=== PATIENT | female | born 1960 | race Two or more races ===

== ENCOUNTER → 2020-04-28 | Outpatient (CLI) | payer OTHER ==
[2020-04-28 07:54] LABS: Basophils # (auto) 0.1 10 ^3/uL (0-0.2); Eosinophils # (auto) 0.4 10 ^3/uL (0-0.8); Monocytes # (auto) 0.6 10 ^3/uL (0-1.3)
[2020-04-28 07:56] LABS: Basophils % (auto) 0.7 % (0.0-2.0); Hematocrit 19.6 % (36.0-46.0); Lymphocytes # (auto) 1.5 10 ^3/uL (0.4-5.4); Lymphocytes % (auto) 15.8 % (10.0-50.0); Mean Corpuscular Hemoglobin 16.3 pg (28.0-32.0); Mean Corpuscular Hgb Conc. 27.3 g/dL (32.0-36.0); Mean Corpuscular Volume 59.5 fL (80.0-100.0); Monocytes % (auto) 6.9 % (0.0-12.0); Neutrophils # (auto) 6.8 10 ^3/uL (1.6-8.6); Neutrophils % (auto) 72.6 % (37.0-80.0); Nucleated Red Blood Cells % 0.3 %; Platelet Count (auto) 364 10^3/uL (140-450); Red Blood Cells 3.29 10^6/uL (4.0-5.20); White Blood Cell 9.4 10^3/uL (4.4-10.8)
[2020-04-28 08:04] LABS: Urine Bacteria FEW /hpf (None Seen); Urine Blood Negative /uL (Negative); Urine Specific Gravity 1.002 (1.001-1.035); Urine WBC 1 /hpf (0 - 5)
[2020-04-28 08:52] LABS: Albumin 3.3 g/dL (3.4-5.0); Calcium 9.5 mg/dL (8.5-10.1); Potassium 3.8 mmol/L (3.5-5.1)
[2020-04-28 08:57] LABS: BUN/Creatinine Ratio 11.3; Bilirubin, Total 0.6 mg/dL (0.2-1.0); Total Protein 6.9 g/dL (6.4-8.2)
[2020-04-28 09:59] LABS: Red Cell Distribution Width 21.8 % (11.8-14.3)
[2020-04-28 10:03] LABS: Hemoglobin 5.4 g/dL (12.2-16.2)
== END | disposition home or self-care (01) ==
LOC: LAB 07:20
PROVIDERS: ATTEND Nurse Practitioner
DX: E78.5 Hyperlipidemia, unspecified (principal); D64.9 Anemia, unspecified
CPT/HCPCS: 36415; 80053; 80061; 81001; 84443; 85025; 85652; 86431

== ENCOUNTER → 2020-07-06 | Emergency (ER) | payer OTHER ==
[~2020-07-06] VITALS: Ht 162.6 cm; Wt 99.8 kg
[~2020-07-06] MED LIST: SODIUM CHLORIDE 0.9% 1,000 ML IV ONE; SODIUM CHLORIDE 0.9% 500 ML IVB ONE; cefTRIAXone 1GM/50ML D5W 50 ML IV ONE
[2020-07-06 12:07] LABS: Basophils # (auto) 0.1 10 ^3/uL (0-0.2); Eosinophils # (auto) 0.5 10 ^3/uL (0-0.8); Hemoglobin 7.3 g/dL (12.2-16.2); Lymphocytes # (auto) 2.3 10 ^3/uL (0.4-5.4); Nucleated Red Blood Cells % 0.1 %
[2020-07-06 12:09] LABS: Basophils % (auto) 0.8 % (0.0-2.0); Eosinophils % (auto) 4.6 % (0.0-7.0); Hematocrit 25.5 % (36.0-46.0); Lymphocytes % (auto) 20.4 % (10.0-50.0); Mean Corpuscular Hemoglobin 17.1 pg (28.0-32.0); Mean Corpuscular Hgb Conc. 28.5 g/dL (32.0-36.0); Mean Corpuscular Volume 59.9 fL (80.0-100.0); Monocytes # (auto) 0.8 10 ^3/uL (0-1.3); Monocytes % (auto) 7.2 % (0.0-12.0); Neutrophils # (auto) 7.5 10 ^3/uL (1.6-8.6); Platelet Count (auto) 568 10^3/uL (140-450); Red Blood Cells 4.25 10^6/uL (4.0-5.20); White Blood Cell 11.1 10^3/uL (4.4-10.8)
[2020-07-06 12:14] LABS: Albumin 4.1 g/dL (3.4-5.0); Calcium 9.4 mg/dL (8.5-10.1)
[2020-07-06 12:15] LABS: Red Cell Distribution Width 21.1 % (11.8-14.3)
[2020-07-06 12:16] LABS: Magnesium 2.4 mg/dL (1.6-2.6)
[2020-07-06 12:17] LABS: BUN/Creatinine Ratio 12.9
[2020-07-06 12:18] LABS: Bilirubin, Total 0.5 mg/dL (0.2-1.0); Total Protein 8.8 g/dL (6.4-8.2)
[2020-07-06 12:24] LABS: INR 1.01 (0.9-1.15); Partial Thromboplastin Time 27.1 sec (23.0-31.2)
[2020-07-06 12:51] LABS: Urine Bacteria FEW /hpf (None Seen); Urine Blood Negative /uL (Negative); Urine Specific Gravity 1.005 (1.001-1.035); Urine WBC 4 /hpf (0 - 5)
[2020-07-06 15:00] VITALS: BP 135/55
== END | disposition home or self-care (01) ==
LOC: ER 10:57
DX: D50.9 Iron deficiency anemia, unspecified (principal); N39.0 Urinary tract infection, site not specified; I10 Essential (primary) hypertension
CPT/HCPCS: 36415; 80053; 81001; 83690; 83735; 84443; 85025; 85610; 85730; 86850; 86900; 86901; 93005; 96361; 96365; 99285; J0696; J7040

== ENCOUNTER → 2020-07-06 | Outpatient (CLI) | payer OTHER ==
[2020-07-06 07:33] LABS: Basophils # (auto) 0.1 10 ^3/uL (0-0.2); Eosinophils # (auto) 0.5 10 ^3/uL (0-0.8); Lymphocytes # (auto) 1.9 10 ^3/uL (0.4-5.4); Mean Corpuscular Hemoglobin 17.4 pg (28.0-32.0); Monocytes # (auto) 0.7 10 ^3/uL (0-1.3); Monocytes % (auto) 6.1 % (0.0-12.0); Neutrophils % (auto) 70.2 % (37.0-80.0); Nucleated Red Blood Cells % 0.1 %
[2020-07-06 07:35] LABS: Basophils % (auto) 0.6 % (0.0-2.0); Eosinophils % (auto) 5.1 % (0.0-7.0); Mean Corpuscular Hgb Conc. 29.2 g/dL (32.0-36.0); Mean Corpuscular Volume 59.7 fL (80.0-100.0); Neutrophils # (auto) 7.6 10 ^3/uL (1.6-8.6); Platelet Count (auto) 535 10^3/uL (140-450); Red Blood Cells 3.69 10^6/uL (4.0-5.20); White Blood Cell 10.8 10^3/uL (4.4-10.8)
[2020-07-06 09:07] LABS: Hemoglobin 6.4 g/dL (12.2-16.2); Red Cell Distribution Width 20.6 % (11.8-14.3)
[2020-07-06 09:10] LABS: Potassium 4.3 mmol/L (3.5-5.1)
[2020-07-06 09:18] LABS: Albumin 3.4 g/dL (3.4-5.0); BUN/Creatinine Ratio 14.9; Bilirubin, Total 0.4 mg/dL (0.2-1.0); Total Protein 7.5 g/dL (6.4-8.2)
== END | disposition home or self-care (01) ==
LOC: LAB 07:12
PROVIDERS: ATTEND Nurse Practitioner
DX: D64.9 Anemia, unspecified (principal)
CPT/HCPCS: 36415; 80053; 82270; 85025

== ENCOUNTER → 2020-09-27 | Outpatient (CLI) | payer OTHER ==
[2020-09-27 08:55] LABS: Urine Bacteria FEW /hpf (None Seen); Urine Blood Negative /uL (Negative); Urine Specific Gravity 1.011 (1.001-1.035); Urine WBC 81 /hpf (0 - 5)
[2020-09-27 09:00] LABS: Partial Thromboplastin Time 27.6 sec (23.0-31.2)
[2020-09-27 09:03] LABS: Basophils # (auto) 0.1 10 ^3/uL (0-0.2); Eosinophils # (auto) 0.8 10 ^3/uL (0-0.8); Lymphocytes # (auto) 1.8 10 ^3/uL (0.4-5.4)
[2020-09-27 09:06] LABS: Basophils % (auto) 1.1 % (0.0-2.0); Eosinophils % (auto) 6.9 % (0.0-7.0); Hematocrit 27.7 % (36.0-46.0); Hemoglobin 8.2 g/dL (12.2-16.2); Lymphocytes % (auto) 16.1 % (10.0-50.0); Mean Corpuscular Hemoglobin 19.1 pg (28.0-32.0); Mean Corpuscular Hgb Conc. 29.8 g/dL (32.0-36.0); Mean Corpuscular Volume 64.3 fL (80.0-100.0); Monocytes # (auto) 0.6 10 ^3/uL (0-1.3); Monocytes % (auto) 5.5 % (0.0-12.0); Neutrophils # (auto) 7.7 10 ^3/uL (1.6-8.6); Neutrophils % (auto) 70.4 % (37.0-80.0); Nucleated Red Blood Cells % 0.1 %; Platelet Count (auto) 577 10^3/uL (140-450); Red Cell Distribution Width 24.2 % (11.8-14.3)
[2020-09-27 09:27] LABS: % Iron Saturation 26.8 % (15-50); Albumin 3.6 g/dL (3.4-5.0); Calcium 9.1 mg/dL (8.5-10.1); Potassium 4.4 mmol/L (3.5-5.1)
[2020-09-27 09:30] LABS: BUN/Creatinine Ratio 11.1; Bilirubin, Direct 0.2 mg/dL (0-0.2); Bilirubin, Total 0.3 mg/dL (0.2-1.0); Total Protein 7.4 g/dL (6.4-8.2)
[2020-09-27 10:15] LABS: Ferritin 8.4 ng/mL (10-322)
[2020-09-27 10:16] LABS: Folate (Folic Acid) 10.24 ng/mL (5.38-24)
== END | disposition home or self-care (01) ==
LOC: LAB 08:07
PROVIDERS: ATTEND Internal Medicine
DX: D64.9 Anemia, unspecified (principal)
CPT/HCPCS: 36415; 80053; 81001; 82248; 82607; 82668; 82728; 82746; 83010; 83540; 83550; 83615; 85025; 85045; 85610; 85730; 86880

== ENCOUNTER → 2020-11-23 | Outpatient (CLI) | payer OTHER ==
[2020-11-23 08:08] LABS: Basophils # (auto) 0.1 10 ^3/uL (0-0.2); Eosinophils # (auto) 0.9 10 ^3/uL (0-0.8); Lymphocytes # (auto) 1.7 10 ^3/uL (0.4-5.4); Mean Corpuscular Volume 67.5 fL (80.0-100.0); Monocytes # (auto) 0.6 10 ^3/uL (0-1.3); Nucleated Red Blood Cells % 0.1 %
[2020-11-23 08:10] LABS: Basophils % (auto) 1.1 % (0.0-2.0); Eosinophils % (auto) 8.3 % (0.0-7.0); Hematocrit 31.2 % (36.0-46.0); Hemoglobin 9.6 g/dL (12.2-16.2); Lymphocytes % (auto) 16.1 % (10.0-50.0); Mean Corpuscular Hemoglobin 20.7 pg (28.0-32.0); Mean Corpuscular Hgb Conc. 30.8 g/dL (32.0-36.0); Monocytes % (auto) 5.4 % (0.0-12.0); Neutrophils # (auto) 7.5 10 ^3/uL (1.6-8.6); Neutrophils % (auto) 69.1 % (37.0-80.0); Platelet Count (auto) 557 10^3/uL (140-450); Red Blood Cells 4.62 10^6/uL (4.0-5.20); White Blood Cell 10.8 10^3/uL (4.4-10.8)
[2020-11-23 08:31] LABS: Albumin 3.8 g/dL (3.4-5.0); Calcium 9.2 mg/dL (8.5-10.1); Potassium 4.4 mmol/L (3.5-5.1)
[2020-11-23 08:34] LABS: % Iron Saturation 51.9 % (15-50)
[2020-11-23 08:36] LABS: BUN/Creatinine Ratio 12.4; Bilirubin, Total 0.3 mg/dL (0.2-1.0); Total Protein 8.1 g/dL (6.4-8.2)
[2020-11-23 08:58] LABS: Ferritin 8.3 ng/mL (10-322)
[2020-11-23 08:59] LABS: Folate (Folic Acid) 11.05 ng/mL (5.38-24)
== END | disposition home or self-care (01) ==
LOC: LAB 07:26
PROVIDERS: ATTEND Internal Medicine
DX: D64.9 Anemia, unspecified (principal)
CPT/HCPCS: 36415; 80053; 82607; 82728; 82746; 83540; 83550; 83615; 85025

== ENCOUNTER → 2021-01-10 | Day surgery (SDC) | payer OTHER ==
[2021-01-06 12:18] LABS: Basophils # (auto) 0.1 10 ^3/uL (0-0.2); Lymphocytes # (auto) 1.7 10 ^3/uL (0.4-5.4); Monocytes # (auto) 0.6 10 ^3/uL (0-1.3)
[2021-01-06 12:21] LABS: Basophils % (auto) 0.9 % (0.0-2.0); Eosinophils # (auto) 0.6 10 ^3/uL (0-0.8); Eosinophils % (auto) 6.7 % (0.0-7.0); Hematocrit 29.7 % (36.0-46.0); Lymphocytes % (auto) 18.6 % (10.0-50.0); Mean Corpuscular Hemoglobin 20.9 pg (28.0-32.0); Mean Corpuscular Hgb Conc. 30.3 g/dL (32.0-36.0); Mean Corpuscular Volume 69.1 fL (80.0-100.0); Monocytes % (auto) 5.9 % (0.0-12.0); Neutrophils # (auto) 6.4 10 ^3/uL (1.6-8.6); Neutrophils % (auto) 67.9 % (37.0-80.0); Nucleated Red Blood Cells % 0.2 %; Platelet Count (auto) 487 10^3/uL (140-450); White Blood Cell 9.4 10^3/uL (4.4-10.8)
[2021-01-06 12:55] LABS: INR 1.01 (0.9-1.15)
[~2021-01-10] VITALS: Ht 162.6 cm; Wt 99.8 kg
[~2021-01-10] MED LIST changes: +LIDOCAINE VISCOUS 2% 15ML UD ONE; +LOSA-39 PO; +METO-158 PO; +MIDAZOLAM HCL 5 MG/ML-1ML VIAL ONE; +OXYB5TAB61 PO; -SODIUM CHLORIDE 0.9% 1,000 ML IV ONE; -SODIUM CHLORIDE 0.9% 500 ML IVB ONE; -cefTRIAXone 1GM/50ML D5W 50 ML IV ONE
[2021-01-10] MEDS: fentaNYL CITRATE 100 MCG/2 ML VL ONE ×3 (09:47→10:08)
[2021-01-10] MEDS: MIDAZOLAM HCL 5 MG/ML-1ML VIAL ONE ×4 (09:47→10:20)
[2021-01-10] MEDS: diphenhdrAMINE HCL 50 MG/1 ML VL ONE ×2 (09:52→10:08)
[2021-01-10 11:50] VITALS: BP 141/59
== END | disposition home or self-care (01) ==
LOC: GI 08:41
PROVIDERS: ATTEND Internal Medicine Gastroenterology
DX: D50.9 Iron deficiency anemia, unspecified (principal); C18.0 Malignant neoplasm of cecum; K31.7 Polyp of stomach and duodenum; K29.50 Unspecified chronic gastritis without bleeding; K31.89 Other diseases of stomach and duodenum; D12.4 Benign neoplasm of descending colon; K63.89 Other specified diseases of intestine; K57.30 Diverticulosis of large intestine without perforation or abscess without bleeding; K64.8 Other hemorrhoids; K29.60 Other gastritis without bleeding; K44.9 Diaphragmatic hernia without obstruction or gangrene; I10 Essential (primary) hypertension; Z20.822 Contact with and (suspected) exposure to COVID-19; Z98.890 Other specified postprocedural states; Z79.899 Other long term (current) drug therapy; Z87.891 Personal history of nicotine dependence; Z68.37 Body mass index [BMI] 37.0-37.9, adult
CPT/HCPCS: 36415; 43239; 45380; 45381; 45385; 85025; 85610; 85730; 88305; 88342; J1200; J2250; J3010; J7030; U0003; 99152; 99153

== ENCOUNTER → 2021-01-17 | Outpatient (CLI) | payer OTHER ==
[~2021-01-17] MED LIST changes: -LIDOCAINE VISCOUS 2% 15ML UD ONE; -MIDAZOLAM HCL 5 MG/ML-1ML VIAL ONE
== END | disposition home or self-care (01) ==
LOC: LAB 09:41
PROVIDERS: ATTEND Internal Medicine Gastroenterology
DX: C18.0 Malignant neoplasm of cecum (principal); D64.9 Anemia, unspecified; K29.70 Gastritis, unspecified, without bleeding
CPT/HCPCS: 36415; 82565; 84520

== ENCOUNTER 2021-02-08 06:04 | Inpatient (IN) | payer OTHER ==
[2021-02-06 14:16] LABS: Urine WBC None Seen /hpf (0 - 5)
[2021-02-06 14:29] LABS: Basophils # (auto) 0.1 10 ^3/uL (0-0.2); Eosinophils # (auto) 0.8 10 ^3/uL (0-0.8); Eosinophils % (auto) 6.5 % (0.0-7.0); Hematocrit 30.4 % (36.0-46.0); Hemoglobin 9.2 g/dL (12.2-16.2); Lymphocytes # (auto) 2.5 10 ^3/uL (0.4-5.4); Lymphocytes % (auto) 19.5 % (10.0-50.0); Mean Corpuscular Hemoglobin 21.1 pg (28.0-32.0); Mean Corpuscular Hgb Conc. 30.3 g/dL (32.0-36.0); Mean Corpuscular Volume 69.6 fL (80.0-100.0); Monocytes # (auto) 0.9 10 ^3/uL (0-1.3); Neutrophils # (auto) 8.4 10 ^3/uL (1.6-8.6); Platelet Count (auto) 479 10^3/uL (140-450); Red Blood Cells 4.37 10^6/uL (4.0-5.20); Red Cell Distribution Width 19.3 % (11.8-14.3); White Blood Cell 12.8 10^3/uL (4.4-10.8)
[2021-02-06 14:33] LABS: Urine Bacteria NONE SEEN /hpf (None Seen); Urine Blood Negative /uL (Negative); Urine Specific Gravity 1.005 (1.001-1.035)
[2021-02-06 14:48] LABS: INR 0.97 (0.9-1.15); Partial Thromboplastin Time 27.9 sec (23.0-31.2)
[2021-02-06 15:06] LABS: Albumin 3.6 g/dL (3.4-5.0); BUN/Creatinine Ratio 16.7; Calcium 8.6 mg/dL (8.5-10.1); Potassium 4.6 mmol/L (3.5-5.1)
[2021-02-06 15:09] LABS: Bilirubin, Total 0.3 mg/dL (0.2-1.0); Total Protein 7.5 g/dL (6.4-8.2)
[~2021-02-08] VITALS: Ht 162.6 cm; Wt 96.2 kg
[2021-02-08] MEDS ORDERED: ceFAZolin 1GM/50ML 100 ML IV ONE (07:13)
[2021-02-08] MEDS ORDERED: metroNIDAZOLE 500MG/100ML 100 ML IV ONE (07:13)
[2021-02-08] MEDS ORDERED: LIDOCAINE 2% (LOCAL ANESTH.) PF 5ml SDV ONE (09:07)
[2021-02-08] MEDS ORDERED: fentaNYL CITRATE 5 ML ONE (09:07)
[2021-02-08] MEDS ORDERED: ONDANSETRON HCL 4 MG/2 ML VIAL ONE (09:07)
[2021-02-08] MEDS ORDERED: MIDAZOLAM HCL 1MG/1ML-2 ML VIAL ONE (09:07)
[2021-02-08] MEDS ORDERED: PROPOFOL 10 MG/ML 20 ML IV ONE (09:07)
[2021-02-08] MEDS ORDERED: ROCURONIUM 10MG/ML 10ML VIAL IV ONE (09:14)
[2021-02-08] MEDS ORDERED: HYDROmorphone HCL 2 MG/ML VL IV PRN (11:30)
[2021-02-08] MEDS ORDERED: ONDANSETRON HCL 4 MG/2 ML VIAL IV PRN (11:30)
[2021-02-08] MEDS ORDERED: SUCCINYLCHOLINE CHLORIDE 20 MG/ML 10ML VIAL IV ONE (11:40)
[2021-02-08] MEDS: HYDROmorphone HCL 2 MG/ML VL ONE ×3 (12:00→13:48)
[2021-02-08] MEDS ORDERED: MORPHINE SULF INJ 2 MG/ML SYRINGE 1ML IV PRN (15:30)
[2021-02-08] MEDS ORDERED: NITROGLYCERIN 0.4 MG SL TAB SL PRN (15:30)
[2021-02-08 15:37] VITALS: BP 131/52
[2021-02-08] MEDS ORDERED: SODIUM CHLORIDE 0.9% 1,000 ML IV SCH (15:45)
[2021-02-08] MEDS: SODIUM CHLORIDE 0.9% 1,000 ML IV SCH (16:31)
[2021-02-08] MEDS: metroNIDAZOLE 500MG/100ML 100 ML IV SCH ×2 (16:32→22:09)
[2021-02-08] MEDS: HYDROmorphone HCL 2 MG/ML VL IV PRN ×2 (16:44→20:04)
[2021-02-08 17:00] VITALS: BP 131/52
[2021-02-08] MEDS: ceFAZolin 1GM/50ML 50 ML IV SCH ×2 (18:24→21:33)
[2021-02-08 22:06] VITALS: BP 127/57
[2021-02-09] MEDS: HYDROmorphone HCL 2 MG/ML VL IV PRN ×7 (00:11→23:28)
[2021-02-09] MEDS: SODIUM CHLORIDE 0.9% 1,000 ML IV SCH ×3 (01:45→21:05)
[2021-02-09 04:50] VITALS: BP 144/66
[2021-02-09] MEDS: ceFAZolin 1GM/50ML 50 ML IV SCH ×3 (05:17→21:06)
[2021-02-09 05:52] LABS: Basophils # (auto) 0 10 ^3/uL (0-0.2); Eosinophils # (auto) 0.2 10 ^3/uL (0-0.8); Lymphocytes # (auto) 0.9 10 ^3/uL (0.4-5.4); Monocytes # (auto) 0.9 10 ^3/uL (0-1.3)
[2021-02-09 05:55] LABS: Basophils % (auto) 0.2 % (0.0-2.0); Eosinophils % (auto) 1.8 % (0.0-7.0); Hematocrit 26.2 % (36.0-46.0); Lymphocytes % (auto) 7.9 % (10.0-50.0); Mean Corpuscular Hemoglobin 21.3 pg (28.0-32.0); Mean Corpuscular Hgb Conc. 30.7 g/dL (32.0-36.0); Mean Corpuscular Volume 69.4 fL (80.0-100.0); Monocytes % (auto) 7.6 % (0.0-12.0); Neutrophils # (auto) 9.5 10 ^3/uL (1.6-8.6); Neutrophils % (auto) 82.5 % (37.0-80.0); Nucleated Red Blood Cells % 0.1 %; Platelet Count (auto) 396 10^3/uL (140-450); Red Blood Cells 3.77 10^6/uL (4.0-5.20); Red Cell Distribution Width 18.8 % (11.8-14.3); White Blood Cell 11.5 10^3/uL (4.4-10.8)
[2021-02-09] MEDS: metroNIDAZOLE 500MG/100ML 100 ML IV SCH ×3 (06:09→21:54)
[2021-02-09 06:24] LABS: BUN/Creatinine Ratio 9.1; Calcium 8.1 mg/dL (8.5-10.1)
[2021-02-09] MEDS: PANTOPRAZOLE 40 MG/10 ML VIAL INJ IV SCH (08:01)
[2021-02-09] MEDS: ONDANSETRON HCL 4 MG/2 ML VIAL IV PRN ×4 (08:08→23:28)
[2021-02-09 08:14] VITALS: BP 135/61
[2021-02-09 13:00] VITALS: BP 125/58
[2021-02-09 16:50] VITALS: BP 128/60
[2021-02-09 20:00] VITALS: BP 135/53
[2021-02-09 22:00] VITALS: BP 135/53
[2021-02-10] MEDS: HYDROmorphone HCL 2 MG/ML VL IV PRN ×4 (03:23→20:05)
[2021-02-10] MEDS: ONDANSETRON HCL 4 MG/2 ML VIAL IV PRN ×4 (03:23→20:05)
[2021-02-10 05:00] VITALS: BP 121/63
[2021-02-10] MEDS: ceFAZolin 1GM/50ML 50 ML IV SCH (05:19)
[2021-02-10] MEDS: metroNIDAZOLE 500MG/100ML 100 ML IV SCH ×3 (06:03→22:51)
[2021-02-10] MEDS: SODIUM CHLORIDE 0.9% 1,000 ML IV SCH (07:45)
[2021-02-10] MEDS: PANTOPRAZOLE 40 MG/10 ML VIAL INJ IV SCH (08:30)
[2021-02-10 09:00] VITALS: BP 137/61
[2021-02-10] MEDS ORDERED: D5W/SOD CHL 0.45% 1,000 ML IV SCH (10:00)
[2021-02-10] MEDS: D5W/SOD CHLO 0.9% 1,000 ML IV SCH ×2 (10:30→23:50)
[2021-02-10 13:00] VITALS: BP 131/69
[2021-02-10 17:00] VITALS: BP 106/80
[2021-02-10 23:15] VITALS: BP 113/51
[2021-02-11] MEDS: HYDROmorphone HCL 2 MG/ML VL IV PRN ×6 (01:44→23:23)
[2021-02-11] MEDS: ONDANSETRON HCL 4 MG/2 ML VIAL IV PRN ×6 (01:45→23:23)
[2021-02-11 05:00] VITALS: BP 146/67
[2021-02-11] MEDS: metroNIDAZOLE 500MG/100ML 100 ML IV SCH ×3 (05:40→22:20)
[2021-02-11 06:11] LABS: Basophils # (auto) 0.1 10 ^3/uL (0-0.2); Lymphocytes # (auto) 1.2 10 ^3/uL (0.4-5.4); Monocytes # (auto) 0.8 10 ^3/uL (0-1.3); White Blood Cell 8.9 10^3/uL (4.4-10.8)
[2021-02-11 06:13] LABS: Basophils % (auto) 0.8 % (0.0-2.0); Eosinophils # (auto) 0.6 10 ^3/uL (0-0.8); Eosinophils % (auto) 6.6 % (0.0-7.0); Hematocrit 25.7 % (36.0-46.0); Hemoglobin 7.8 g/dL (12.2-16.2); Lymphocytes % (auto) 13.8 % (10.0-50.0); Mean Corpuscular Hemoglobin 21.2 pg (28.0-32.0); Mean Corpuscular Hgb Conc. 30.3 g/dL (32.0-36.0); Mean Corpuscular Volume 69.9 fL (80.0-100.0); Monocytes % (auto) 9.2 % (0.0-12.0); Neutrophils # (auto) 6.2 10 ^3/uL (1.6-8.6); Neutrophils % (auto) 69.6 % (37.0-80.0); Platelet Count (auto) 417 10^3/uL (140-450); Red Blood Cells 3.68 10^6/uL (4.0-5.20); Red Cell Distribution Width 18.4 % (11.8-14.3)
[2021-02-11 06:32] LABS: Calcium 8.5 mg/dL (8.5-10.1); Potassium 3.9 mmol/L (3.5-5.1)
[2021-02-11 06:36] LABS: BUN/Creatinine Ratio 12.7
[2021-02-11 08:00] VITALS: BP 105/57
[2021-02-11] MEDS: PANTOPRAZOLE 40 MG/10 ML VIAL INJ IV SCH (09:15)
[2021-02-11] MEDS: ENOXAPARIN SOD 40 MG/0.4 ML SYRINGE SC SCH (09:15)
[2021-02-11] MEDS: cefTRIAXone 1GM/50ML D5W 50 ML IV SCH (09:17)
[2021-02-11 13:00] VITALS: BP 107/61
[2021-02-11] MEDS: D5W/SOD CHLO 0.9% 1,000 ML IV SCH (13:10)
[2021-02-11 17:20] VITALS: BP 136/63
[2021-02-11 22:00] VITALS: BP 122/68
[2021-02-12] MEDS: D5W/SOD CHLO 0.9% 1,000 ML IV SCH ×2 (04:23→15:50)
[2021-02-12] MEDS: ONDANSETRON HCL 4 MG/2 ML VIAL IV PRN ×5 (04:27→22:26)
[2021-02-12] MEDS: HYDROmorphone HCL 2 MG/ML VL IV PRN ×5 (04:27→22:26)
[2021-02-12 05:00] VITALS: BP 119/58
[2021-02-12] MEDS: metroNIDAZOLE 500MG/100ML 100 ML IV SCH ×3 (05:53→21:03)
[2021-02-12 06:39] LABS: Basophils # (auto) 0 10 ^3/uL (0-0.2); Eosinophils # (auto) 0.6 10 ^3/uL (0-0.8); Hemoglobin 7.9 g/dL (12.2-16.2); Lymphocytes # (auto) 0.8 10 ^3/uL (0.4-5.4); White Blood Cell 6.7 10^3/uL (4.4-10.8)
[2021-02-12 06:45] LABS: Basophils % (auto) 0.7 % (0.0-2.0); Eosinophils % (auto) 8.3 % (0.0-7.0); Hematocrit 25.6 % (36.0-46.0); Lymphocytes % (auto) 12.2 % (10.0-50.0); Mean Corpuscular Hemoglobin 21.7 pg (28.0-32.0); Mean Corpuscular Hgb Conc. 30.9 g/dL (32.0-36.0); Mean Corpuscular Volume 70.2 fL (80.0-100.0); Monocytes # (auto) 0.8 10 ^3/uL (0-1.3); Monocytes % (auto) 11.7 % (0.0-12.0); Neutrophils # (auto) 4.5 10 ^3/uL (1.6-8.6); Neutrophils % (auto) 67.1 % (37.0-80.0); Platelet Count (auto) 403 10^3/uL (140-450); Red Blood Cells 3.64 10^6/uL (4.0-5.20); Red Cell Distribution Width 17.6 % (11.8-14.3)
[2021-02-12 06:52] LABS: Potassium 3.7 mmol/L (3.5-5.1)
[2021-02-12 07:05] LABS: Albumin 2.6 g/dL (3.4-5.0); BUN/Creatinine Ratio 17.2; Bilirubin, Total 0.2 mg/dL (0.2-1.0); Calcium 8.2 mg/dL (8.5-10.1); Total Protein 5.8 g/dL (6.4-8.2)
[2021-02-12] MEDS: cefTRIAXone 1GM/50ML D5W 50 ML IV SCH (09:02)
[2021-02-12] MEDS: ENOXAPARIN SOD 40 MG/0.4 ML SYRINGE SC SCH (09:03)
[2021-02-12] MEDS: PANTOPRAZOLE 40 MG/10 ML VIAL INJ IV SCH (09:03)
[2021-02-12 09:16] VITALS: BP_SYST 121; BP_SYST 151; BP_DIAS 65; BP_DIAS 71
[2021-02-12 14:35] VITALS: BP 158/93
[2021-02-12 17:00] VITALS: BP 135/62
[2021-02-12 22:00] VITALS: BP 134/68
[2021-02-13] MEDS: ONDANSETRON HCL 4 MG/2 ML VIAL IV PRN ×4 (02:53→22:33)
[2021-02-13] MEDS: HYDROmorphone HCL 2 MG/ML VL IV PRN ×4 (02:54→22:33)
[2021-02-13 05:00] VITALS: BP 133/53
[2021-02-13] MEDS: D5W/SOD CHLO 0.9% 1,000 ML IV SCH ×2 (05:10→18:15)
[2021-02-13] MEDS: metroNIDAZOLE 500MG/100ML 100 ML IV SCH (06:22)
[2021-02-13 07:23] LABS: Basophils # (auto) 0 10 ^3/uL (0-0.2); Eosinophils # (auto) 0.6 10 ^3/uL (0-0.8); Eosinophils % (auto) 8.2 % (0.0-7.0); Monocytes # (auto) 0.6 10 ^3/uL (0-1.3); Platelet Count (auto) 432 10^3/uL (140-450)
[2021-02-13 07:26] LABS: Basophils % (auto) 0.6 % (0.0-2.0); Hematocrit 27.2 % (36.0-46.0); Hemoglobin 8.3 g/dL (12.2-16.2); Lymphocytes % (auto) 13.8 % (10.0-50.0); Mean Corpuscular Hemoglobin 21.3 pg (28.0-32.0); Mean Corpuscular Hgb Conc. 30.5 g/dL (32.0-36.0); Mean Corpuscular Volume 69.7 fL (80.0-100.0); Monocytes % (auto) 8.1 % (0.0-12.0); Neutrophils % (auto) 69.3 % (37.0-80.0); Nucleated Red Blood Cells % 0.1 %; White Blood Cell 7.3 10^3/uL (4.4-10.8)
[2021-02-13 07:59] LABS: BUN/Creatinine Ratio 15.7; Calcium 8.3 mg/dL (8.5-10.1); Potassium 3.7 mmol/L (3.5-5.1)
[2021-02-13] MEDS: cefTRIAXone 1GM/50ML D5W 50 ML IV SCH (08:06)
[2021-02-13] MEDS: PANTOPRAZOLE 40 MG/10 ML VIAL INJ IV SCH (08:06)
[2021-02-13] MEDS: ENOXAPARIN SOD 40 MG/0.4 ML SYRINGE SC SCH (08:07)
[2021-02-13 08:29] VITALS: BP 128/79
[2021-02-13 12:30] VITALS: BP 127/81
[2021-02-13] MEDS ORDERED: HYDROcodone-ACET 5/325MG TAB PO PRN (12:45)
[2021-02-13 16:42] VITALS: BP 118/64
[2021-02-13 22:00] VITALS: BP 129/66
[2021-02-14] MEDS: ONDANSETRON HCL 4 MG/2 ML VIAL IV PRN ×5 (02:36→22:46)
[2021-02-14] MEDS: HYDROmorphone HCL 2 MG/ML VL IV PRN ×5 (02:36→22:46)
[2021-02-14 05:00] VITALS: BP 151/69
[2021-02-14] MEDS: ENOXAPARIN SOD 40 MG/0.4 ML SYRINGE SC SCH (08:27)
[2021-02-14] MEDS: cefTRIAXone 1GM/50ML D5W 50 ML IV SCH (08:27)
[2021-02-14] MEDS: PANTOPRAZOLE 40 MG/10 ML VIAL INJ IV SCH (08:27)
[2021-02-14 08:30] VITALS: BP 143/74
[2021-02-14] MEDS: D5W/SOD CHLO 0.9% 1,000 ML IV SCH (08:39)
[2021-02-14 13:12] VITALS: BP 140/80
[2021-02-14 16:40] VITALS: BP 142/66
[2021-02-14 21:38] VITALS: BP 145/69
[2021-02-15] MEDS: ONDANSETRON HCL 4 MG/2 ML VIAL IV PRN ×2 (03:39→09:29)
[2021-02-15] MEDS: HYDROmorphone HCL 2 MG/ML VL IV PRN ×2 (03:40→09:29)
[2021-02-15 04:46] VITALS: BP 158/71
[2021-02-15 09:00] VITALS: BP 155/74
[2021-02-15] MEDS: PANTOPRAZOLE 40 MG/10 ML VIAL INJ IV SCH (09:04)
[2021-02-15] MEDS: cefTRIAXone 1GM/50ML D5W 50 ML IV SCH (09:04)
[2021-02-15] MEDS: ENOXAPARIN SOD 40 MG/0.4 ML SYRINGE SC SCH (09:05)
[2021-02-15 13:00] VITALS: BP 142/66
== END 2021-02-15 17:00 | disposition home or self-care (01) | DRG 330 ==
LOC: SUR 06:04 → TELE-WESTW 06:05
PROVIDERS: ADMIT Internal Medicine; ATTEND Internal Medicine
PROC: 0DTF0ZZ Resection of Right Large Intestine, Open Approach (ICD-10-PCS; principal; 2021-02-08 09:10)
DX: C18.0 Malignant neoplasm of cecum (principal); E87.1 Hypo-osmolality and hyponatremia; R65.10 Systemic inflammatory response syndrome (SIRS) of non-infectious origin without acute organ dysfunction; D63.8 Anemia in other chronic diseases classified elsewhere; E66.9 Obesity, unspecified; E78.5 Hyperlipidemia, unspecified; D50.9 Iron deficiency anemia, unspecified; Z20.822 Contact with and (suspected) exposure to COVID-19; I10 Essential (primary) hypertension; K44.9 Diaphragmatic hernia without obstruction or gangrene; Z85.038 Personal history of other malignant neoplasm of large intestine; Z68.39 Body mass index [BMI] 39.0-39.9, adult
CPT/HCPCS: 36415; 36600; 80048; 80053; 81001; 82150; 82378; 82805; 83540; 83550; 83690; 84443; 85025; 85610; 85730; 86850; 86900; 86901; 97116; 97163; 97530; C9113; G0378; J0330; J0690; J0696; J2001; J2250; J2405; J2704; J3490; J7042

== ENCOUNTER → 2021-03-07 | Outpatient (CLI) | payer OTHER ==
[2021-03-07 10:16] LABS: Basophils # (auto) 0.1 10 ^3/uL (0-0.2); Eosinophils # (auto) 1.1 10 ^3/uL (0-0.8); Monocytes # (auto) 0.6 10 ^3/uL (0-1.3); White Blood Cell 8.6 10^3/uL (4.4-10.8)
[2021-03-07 10:22] LABS: Basophils % (auto) 1.4 % (0.0-2.0); Eosinophils % (auto) 13.1 % (0.0-7.0); Hematocrit 28.9 % (36.0-46.0); Lymphocytes % (auto) 22.8 % (10.0-50.0); Mean Corpuscular Hemoglobin 20.7 pg (28.0-32.0); Mean Corpuscular Hgb Conc. 31.1 g/dL (32.0-36.0); Mean Corpuscular Volume 66.5 fL (80.0-100.0); Monocytes % (auto) 7.6 % (0.0-12.0); Neutrophils # (auto) 4.7 10 ^3/uL (1.6-8.6); Neutrophils % (auto) 55.1 % (37.0-80.0); Nucleated Red Blood Cells % 0.1 %; Platelet Count (auto) 365 10^3/uL (140-450); Red Blood Cells 4.35 10^6/uL (4.0-5.20); Red Cell Distribution Width 17.9 % (11.8-14.3)
[2021-03-07 10:32] LABS: % Iron Saturation 4.5 % (15-50)
[2021-03-07 10:33] LABS: Potassium 4.3 mmol/L (3.5-5.1)
[2021-03-07 10:39] LABS: Albumin 3.6 g/dL (3.4-5.0); BUN/Creatinine Ratio 13.1; Bilirubin, Total 0.6 mg/dL (0.2-1.0); Total Protein 7.9 g/dL (6.4-8.2)
== END | disposition home or self-care (01) ==
LOC: LAB 09:20
PROVIDERS: ATTEND Internal Medicine
DX: D64.9 Anemia, unspecified (principal)
CPT/HCPCS: 36415; 80053; 82728; 83540; 83550; 83615; 85025

== ENCOUNTER → 2021-09-11 | Outpatient (CLI) | payer OTHER ==
[2021-09-11 09:16] LABS: Eosinophils # (auto) 0.3 10 ^3/uL (0-0.8); Lymphocytes # (auto) 1.5 10 ^3/uL (0.4-5.4); Mean Corpuscular Hemoglobin 26.7 pg (28.0-32.0); Monocytes % (auto) 5.9 % (0.0-12.0); Neutrophils # (auto) 5.3 10 ^3/uL (1.6-8.6)
[2021-09-11 09:19] LABS: Basophils # (auto) 0 10 ^3/uL (0-0.2); Basophils % (auto) 0.5 % (0.0-2.0); Eosinophils % (auto) 3.5 % (0.0-7.0); Hematocrit 36.8 % (36.0-46.0); Hemoglobin 12.3 g/dL (12.2-16.2); Lymphocytes % (auto) 20.3 % (10.0-50.0); Mean Corpuscular Hgb Conc. 33.5 g/dL (32.0-36.0); Mean Corpuscular Volume 79.7 fL (80.0-100.0); Monocytes # (auto) 0.4 10 ^3/uL (0-1.3); Neutrophils % (auto) 69.8 % (37.0-80.0); Nucleated Red Blood Cells % 0.2 %; Red Blood Cells 4.61 10^6/uL (4.0-5.20); Red Cell Distribution Width 15.8 % (11.8-14.3); White Blood Cell 7.6 10^3/uL (4.4-10.8)
[2021-09-11 09:55] LABS: Calcium 8.7 mg/dL (8.5-10.1)
[2021-09-11 10:01] LABS: Albumin 3.6 g/dL (3.4-5.0); BUN/Creatinine Ratio 15.7; Bilirubin, Total 0.3 mg/dL (0.2-1.0); Total Protein 7.2 g/dL (6.4-8.2)
[2021-09-11 10:05] LABS: % Iron Saturation 8.7 % (15-50)
[2021-09-11 10:41] LABS: Ferritin 11.3 ng/mL (10-322)
[2021-09-11 10:42] LABS: Carcinoembryonic Antigen 0.87 ng/mL (<5.0 OR =)
[2021-09-11 10:47] LABS: Folate (Folic Acid) 11.62 ng/mL (5.38-24)
== END | disposition home or self-care (01) ==
LOC: LAB 08:31
PROVIDERS: ATTEND Internal Medicine
DX: C18.9 Malignant neoplasm of colon, unspecified (principal)
CPT/HCPCS: 36415; 80053; 82306; 82378; 82607; 82728; 82746; 83540; 83550; 83615; 84443; 85025; 86038